=== PATIENT | male | born 1980 | race Caucasian/White ===

== ENCOUNTER 2023-12-24 08:05 | Emergency (ER) | payer OTHER ==
[~2023-12-24] VITALS: Ht 185.4 cm; Wt 106.6 kg
[2023-12-24 08:05] VITALS: BP 138/84; PULSE 96; RESP 18; TEMP 98.4; O2SAT 96
[2023-12-24] MEDS ORDERED: ZOFRAN ONE (08:42)
[2023-12-24] MEDS ORDERED: TORADOL ONE (08:42)
[2023-12-24] MEDS ORDERED: NS 1000ML 1,000 ML ONE (08:42)
[2023-12-24] MEDS: NS 1000ML 1,000 ML IV STA (08:46)
[2023-12-24] MEDS: TORADOL IV STA (08:46)
[2023-12-24] MEDS: ZOFRAN IV STA (08:46)
[2023-12-24 09:06] LABS: ALBUMIN(ML) 4.1 g/dL (3.4-5.0); ALBUMIN/GLOBULIN RATIO 1.171; CALCIUM 8.3 mg/dL (8.4-10.5); CARBON DIOXIDE 25.3 mmol/L (20.0-32)
[2023-12-24 09:14] LABS: BASOPHIL % 0.1 % (0.0-0.2); EOSINOPHIL % 0.1 % (0.0-5.0); HEMATOCRIT(ML) 47.5 % (37.0-53.0); HEMOGLOBIN 16.6 g/dL (13.9-16.3); LYMPHOCYTES # 0.43 10^3/uL1 (1.0-4.8); LYMPHOCYTES % 5.3 % (24.0-44.0); MEAN CORP HGB 31.6 pg (26-34); MEAN CORP HGB CONCENTRATION 34.9 g/dL (33-36.5); MEAN CORP VOLUME 90.3 fL (78-100); MONOCYTES # 0.6 10^3/uL (0.3-0.8); MONOCYTES % 7.5 % (5.0-12.0); NEUTROPHILS % 86.6 % (41.0-85.0); RED BLOOD CELL 5.26 10^6/uL (4.50-5.90); RED CELL DISTRIBUTION WIDTH 12.8 % (11.5-14.5)
[2023-12-24 09:17] LABS: PLATELET COUNT 111 10^3/uL (150-400)
[2023-12-24 09:18] LABS: +ADD MANUAL DIFF(NO CHRG) NO
[2023-12-24 09:32] LABS: ANION GAP 15.1; BUN/CREATININE RATIO 6.48 (10.0-20.0); CREATININE SERUM 1.08 mg/dL (0.59-1.40); EST GFR, NON-AA 74.6 (>/=60); POTASSIUM 3.4 mmol/L (3.6-5.2)
[2023-12-24 11:08] VITALS: BP 115/67; PULSE 93; RESP 18; TEMP 98.4; O2SAT 96
== END 2023-12-24 11:17 | disposition home or self-care (01) ==
LOC: ER 08:05
DX: K57.32 Diverticulitis of large intestine without perforation or abscess without bleeding (principal); Z88.0 Allergy status to penicillin; Z88.1 Allergy status to other antibiotic agents
CPT/HCPCS: 99285; 74177; 96374; 96361; 96375; 80053; 85025; 36415; J7030; J2405; J1885; Q9965